=== PATIENT | female | born 2000 | race Caucasian/White ===

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

== ENCOUNTER 2023-02-24 11:31 | Outpatient (REF) | payer MEDICAID, SELFPAY ==
[2023-02-24 13:31] LABS: Hematocrit 36.2 % (37.0-47.0); Hemoglobin 10.9 g/dl (12.0-16.0); Mean Corpuscular HGB Conc 30.1 g/dl (31.0-35.0); Mean Corpuscular Volume 69.9 fL (80.0-98.0); Mean Platelet Volume 9.6 fL (9.4-12.3); Platelet Count 412 X10*3/uL (160-400); Red Blood Count 5.18 X10*6/uL (4.20-5.50); Red Cell Distribution Width 17.3 % (11.0-16.0); White Blood Count 7.1 X10*3/uL (4.8-10.8)
[2023-02-24 13:45] LABS: Alanine Aminotransferase 14 U/L (0-31); Albumin Level 4.4 g/dL (3.5-5.0); Alkaline Phosphatase 111 U/L (39-117); Anion Gap 9 (12-20); Aspartate Amino Transferase 18 U/L (5-31); Bilirubin Total 0.4 mg/dL (0.0-1.0); Blood Urea Nitrogen 5 mg/dL (9-16); Calcium 9.5 mg/dL (8.4-10.2); Carbon Dioxide 30 mmol/L (22-29); Chloride 106 mmol/L (96-108); Cholesterol 121 mg/dL (<200); Estimated Glomerular Filt Rate > 60; Glucose Random 97 mg/dL (60-115); HDL Cholesterol 32 mg/dL (>40); Iron 27 mcg/dL (30-160); LDL Cholesterol Calculated 77 mg/dL (<100); Percent Iron Saturation 8 % (15-50); Potassium 3.9 mmol/L (3.3-5.1); Sodium 141 mmol/L (135-145); Total Iron Binding Capacity 359 mcg/dL (228-428); Total Protein 7.9 g/dL (6.5-8.0); Triglycerides 62 mg/dL (<150); Unsaturated Iron Binding 332 ug/dL
[2023-02-24 13:47] LABS: Estimated Average Glucose 103 mg/dL; Hemoglobin A1c % 5.2 % (<6.0)
[2023-02-24 14:11] LABS: Ferritin 9 ng/mL (10-122); TSH reflex Free T4 1.51 uIU/mL (0.32-4.0); Vitamin D 25-OH Total 15.5 ng/mL (>30)
[2023-02-25 03:41] LABS: Syphilis Screen Nonreactive (Nonreactive)
[2023-02-25 03:59] LABS: HIV AB/AG Nonreactive (Nonreactive); HIV Num 1 0.07 S/CO (0.00-0.99); Hepatitis B Core Antibody Nonreactive (Nonreactive); ~HepC Num1 0.13 S/CO (0.00-0.79); ~Hepatitis B Surface Antibody NONREACTIVE (Nonreactive); ~Hepatitis C Antibody Nonreactive (Nonreactive)
[2023-03-02 11:40] LABS: Anti Nuclear Antibody Screen NEGATIVE (NEGATIVE)
== END 2023-02-24 11:32 | disposition home or self-care (01) ==
LOC: HO.HHCL 11:31
PROVIDERS: Visit Provider Student in an Organized Health Care Education/Training Program
DX: Z00.00 Encounter for general adult medical examination without abnormal findings (principal); Z11.4 Encounter for screening for human immunodeficiency virus [HIV]; L65.9 Nonscarring hair loss, unspecified
CPT/HCPCS: 36415; 80053; 80061; 82306; 82728; 83036; 83540; 84443; 85027; 86038; 86704; 86706; 86780; 86803; 87389

== ENCOUNTER 2023-04-03 17:35 | Outpatient (REF) | payer MEDICAID, SELFPAY ==
[2023-04-04 05:49] LABS: CT PCR NOT DETECTED (Not Detect.); NG PCR NOT DETECTED (Not Detect.)
== END 2023-04-03 17:36 | disposition home or self-care (01) ==
LOC: HO.HHCLNP 17:35
PROVIDERS: Visit Provider Internal Medicine
DX: N93.8 Other specified abnormal uterine and vaginal bleeding (principal)
CPT/HCPCS: 0353U

== ENCOUNTER 2023-07-26 10:08 | Outpatient (REF) | payer MEDICAID, SELFPAY | END 2023-07-26 10:09 | disposition home or self-care (01) | LOC: HO.HHCLNP 10:08 | PROVIDERS: Visit Provider Advanced Practice Midwife | DX: Z01.419 Encounter for gynecological examination (general) (routine) without abnormal findings (principal) | CPT/HCPCS: 88142 ==

== ENCOUNTER 2024-07-25 11:02 | Outpatient (REF) | payer MEDICAID, SELFPAY ==
--- OUTSIDE RECORDS SUMMARY | 2024-07-25 13:17 | XMS_ITS | Encounter Summary ---
Author Organization [employer] Address [address] [place] [address] Care Team Providers Care Cycle Consultant Name Role Phone Laisha Romo MD Primary Care Pro vider Reason for Visit * Reason Comments Gynecologic Exam Encounter Details Date Type Department Care Team (Late st Contact Info) Description 07/25/2024 10:15 AM EDT Office Visit [facility] [address] [place] [address] Nilsa Parks CNM [address] [place] [address] Screening examination for venereal disease (Primary Dx); Hair loss Social History Tobacco Use Types Packs/Day Years Used Date Smoking Tobacco: Never Passive Smoke Exposure: Never Smokeless Tobacco: Never Alcohol Use Standard Drinks/Week Comments Not Currently 0 (1 standard drink = 0.6 oz pur e alcohol) social Depression Answer Date Recorded Patient Health Questionnaire-9 Score 4 02/24/2023 Patient Health Questionnaire-9 Score 4 02/24/2023 Last PHQ-9: Questionnaire Data Not on file 1 04/26/2022 Housing Stability Answer Date Recorded What is your housing situation today? I do not have housing (Staying with others, in a hotel, in a [place], living outside on the street, on a beach, in a car, or in a park 02/15/[address] you li ve. Do you have problems with any of the following? None of the above 02/15/2023 Food Insecurity Answer Date Recorded Within the past 12 months, y ou worried that your food would run out before you got money to buy more: Never True 02/15/2023 Within the past 12 months,th e food you bought just didn't last and you didn't have enough money to get more: Never True 04/2022 Transportation Answer Date Recorded In the past 12 months, has l ack of transportation kept you from medical appts, meetings, work or from getting things needed for daily living? No 02/15/2023 Utilities Answer Date Recorded In the past 12 months, has t he electric, gas, oil or water company threatened to shut off services in your home? No 02/15/2023 Depression Answer Date Recorded Patient Health Questionnaire-2 Score 0 02/24/2023 Comments No Sex and Gender Information Value Date Recorded Sex Assigned at Female 02/24/2023 9:57 AM EST Legal Sex Female 12:20 PM EDT Gender Identity Female 02/24/2023 9:57 AM EST Sexual Orientation Pansexual 02/24/2023 10 :50 AM EST documented as of this encounter Last Filed Vital Signs Vital Sign Reading Time Taken Comments Blood Pressure 138/66 07/25/2024 10:30 AM EDT Pulse 59 07/25/2024 10:30 AM EDT Temperature 36.8 ??C (98.3 ??F) 07/25/2024 10:30 AM E DT Respiratory Rate 16 07/25/2024 10:30 AM EDT Oxygen Saturation 98% 07/25/2024 10:30 AM EDT Inhaled Oxygen Concentration - - Weight 109 kg (241 lb) 07/25/2024 10:30 AM EDT Height 165.1 cm (5' 5 ) 07/25/2024 10:30 AM EDT Body Mass Index 40.1 07/25/2024 10:30 AM EDT documented in this encounter Progress Notes * Nilsa Parks CNM - 07/25/2024 10:15 AM EDT Subjective Patient ID: Michael Martínez is a 24 y.o. female who presents for Gynecologic Exam. Here for annual exam. Last pap smear in 07/26/2023 NILM, not due until 2026. Denies itching, burning, discharge or odor. Has long distance partner, feels safe and is happy. Last intercourse in April, uses condoms, not interested in other forms of BC. Reviewed risks and benefits of as well as lack of evidence for routine pelvic exams and breast exams in average risk patients without symptoms. Together, we decide to defer both today. Michael knows to report any pelvic pain, abnormal discharge or abnormal bleeding or breast symptoms. Main concern is hair loss. She has family history of thyroid disorders. Patient seen in conjunction with Isabell Bernard, [employer] student. I was present for and confirmed all pertinent elements in the history, exam, assessment of the patient, and the plan of care, and agree with all findings. Gynecologic Exam The patient's pertinent negatives include no vaginal discharge. Review of Systems Genitourinary: Negative for menstrual problem, vaginal bleeding, vaginal discharge and vaginal pain. All other systems reviewed and are negative. Objective BP 138/66 (BP Location: Left arm, Patient Position: Sitting, BP Cuff Size: Large adult) Pulse 59 Temp 98.3 ??F (36.8 ??C) (Oral) Resp 16 Ht 5' 5 (1.651 m) Wt 241 lb (109 kg) LMP 07/16/2024 (Exact Date) SpO2 98% BMI 40.10 kg/m?? Physical Exam Constitutional: Appearance: Normal appearance. Neurological: Mental Status: She is alert. Psychiatric: Mood and Affect: Mood normal. Behavior: Behavior normal. Assessment/Plan Diagnoses and all orders for this visit: Screening examination for venereal disease - Chlamydia/N. Gonorrhoeae RNA, TMA, Urine Urine collected for testing, will advise with results. Pap 2026. May return any time if interested in other control options, has any EDUCATION TECHNICIAN concerns, or thinkingabout getting . Hair loss - TSH W/Reflex to FT4; Future Will get labs done today. If negative will refer to derm and advise with results. documented in this encounter Plan of Treatment Scheduled Orders Name Type Priority Associated Diagnoses Orde r Schedule Chlamydia/N. Gonorrhoeae RNA, TMA, Urine Microbiology Routine Screening examination for venereal disease Ordered: 07/25/2024 TSH W/Reflex to FT4 Lab Routine Hair loss Expected: 07/25/2024 (Approximate), Expires: 07/25/2025 documented as of this encounter Visit Diagnoses Diagnosis Screening examination for venereal disease- Primary Hair loss Unspecified alopecia documented in this encounter Additional Health Concerns Assessment Noted Time PHQ-9 Depression Total Score: 4 02/25/20 10:41 AM EST documented as of this encounter Care Teams Cycle Consultant Relationship Specialty Start Date End Date Laisha Romo MD [address] [place] [id number] PCP - General Internal Medicine 02/24/23 documented as of this encounter
--- OUTSIDE RECORDS SUMMARY | 2024-07-25 13:17 | XMS_ITS | Encounter Summary ---
Author Organization [employer] Address [address] [facility] [address] [place] [address] Care Team Providers Care Rehab Department Manager Name Role Phone Laisha Romo MD Primary Care Pro vider Reason for Visit * Reason Comments Med Change Request Encounter Details Date Type Department Care Team (Late st Contact Info) Description 06/23/2023 Refill [facility] [address] [place] [address] Laisha Romo MD [address] [place] [address] Social History Tobacco Use Types Packs/Day Years Used Date Smoking Tobacco: Never Passive Smoke Exposure: Never Smokeless Tobacco: Never Alcohol Use Standard Drinks/Week Comments Yes 0 (1 standard drink = 0.6 oz pur e alcohol) social Depression Answer Date Recorded Patient Health Questionnaire-9 Score 4 02/24/2023 Patient Health Questionnaire-9 Score 4 02/24/2023 Last PHQ-9: Questionnaire Data Not on file 1 04/26/2022 Housing Stability Answer Date Recorded What is your housing situation today? I do not have housing (Staying with others, in a hotel, in a assisted, living outside on the street, on a [...] Patient Health Questionnaire-2 Score 0 02/24/2023 Comments Unknown Sex and Gender Information Value Date Recorded Sex Assigned at Female 02/24/2023 9:57 AM EST Legal Sex Female 12:20 PM EDT Gender Identity Female 02/24/2023 9:57 AM EST Sexual Orientation Pansexual 02/24/2023 10 :50 AM EST documented as of this encounter Plan of Treatment Not on file documented as of this encounter Visit Diagnoses Not on filedocumented in this encounter Additional Health Concerns Assessment Noted Time PHQ-9 Depression Total Score: 4 02/25/20 10:41 AM EST documented as of this encounter Care Teams Rehab Department Manager Relationship Specialty Start Date End Date Laisha Romo MD [address] [place] [id number] PCP - General Internal Medicine 02/24/23 documented as of this encounter
--- OUTSIDE RECORDS SUMMARY | 2024-07-25 13:17 | XMS_ITS | Clinical Summary ---
Author Organization [facility] it Address [address] [place] [address] Care Team Providers Care Fringe Knotter Name Role Phone Unavailable Primary Care Provider Unavailabl e Social History Tobacco Use Types Packs/Day Years Used Date Smoking Tobacco: Never Assessed Comments Unknown Sex and Gender Information Value Date Recorded Sex Assigned at Not on file Legal Sex Female 8:26 AM EST Gender Identity Not on file Sexual Orientation Not on file Plan of Treatment Health Maintenance Due Date Last Done Comments Gonorrhea/Chlamydia Screening 2002 HPV Vaccines (1 - 3-dose series) 2017 Meningococcal B Vaccine (1 o f 2 - Standard) 2018 DTaP,Tdap,and Td Vaccines (1 - Tdap) 2021 Hepatitis B Vaccines (1 of 3 - 19+ 3-dose series) 2021 Depression Screening 03/20/2022 HIV Screening 03/20/2022 Hepatitis C Screening 03/20/2022 Social Influencers of Health Screening 03/20/2022 Cervical Cancer Screening: P ap Smear 06/18/2023 COVID-19 Vaccine (1 - 2023-2 5 season) 2023 Influenza Vaccine (Season Ended) 2024 HIB Vaccines Aged Out No longer eligi ble based on patient's age to complete this topic Hepatitis A Vaccines Aged Out No long er eligible based on patient's age to complete this topic IPV Vaccines Aged Out No longer eligi ble based on patient's age to complete this topic MMR Vaccines Aged Out No longer eligi ble based on patient's age to complete this topic Meningococcal ACWY Vaccine Aged Out N o longer eligible based on patient's age to complete this topic Pneumococcal Vaccine: Pediat rics (0 to 5 Years) and At-Risk Patients (6 to 64 Years) Aged Out No longer eligible b ased on patient's age to complete this topic RSV Immunization Patients Un cecilia 20 months Aged Out No longer eligible b ased on patient's age to complete this topic Varicella Vaccines Aged Out No longer eligible based on patient's age to complete this topic
--- OUTSIDE RECORDS SUMMARY | 2024-07-25 13:17 | XMS_ITS | Encounter Summary ---
Author Organization [email or web address] Address [address] [place] [address] Care Team Providers Care Business Objects Name Role Phone Laisha Romo MD Primary Care Pro vider Encounter Details Date Type Department Care Team (Latest Contact Info) Description 07/25/2024 Travel Social History Tobacco Use Types Packs/Day Years [...] with others, in a hotel, in a alf, living outside on the street, on a [...] documented as of this encounter Care Teams Business Objects Relationship Specialty Start Date End Date Laisha Romo MD [address] [place] [id number] PCP - General Internal Medicine 02/24/23 documented as of this encounter
--- OUTSIDE RECORDS SUMMARY | 2024-07-25 13:17 | XMS_ITS | Clinical Summary ---
Author Organization [employer] Address [address] [place] [address] Care Team Providers Care Piano Accompanist Name Role Phone Laisha Romo MD Primary Care Pro vider Allergies Active Allergy Reactions Criticality Noted Date Comments Shrimp Flavor Agent (Non-Screening) 07/26/2023 Medications * This document contains information received from the source organization and may not represent a complete record from that organization. ferrous gluconate (Fergon) 324 (38 Fe) MG tablet TAKE 1 TABLET BY MOUTH WITH BREAKFAST 90 tablet 4 Active albuterol 108 (90 Base) MCG/ACT inhaler Inhale 2 puffs every 6 (six) hours if needed for wheezing. 18 g 3 4 Active Mometasone Furoate (Asmanex HFA) 200 MCG/ACT aerosol INHALE 1 PUFF BY MOUTH TWICE A DAY 13 g 2 4 Active ulipristal (Jeannette) 30 mg tablet Take one tablet by mouth up to five days after sex. Do not use more than once per menstrual cycle. If repeat dose is needed in same cycle, please contact prescriber. 1 tablet 11 4 Active ergocalciferol (Vitamin D2) 1.25 MG (91709 UT) capsule TAKE 1 CAPSULE BY MOUTH ONE TIME PER WEEK 13 capsule 4 Active Active Problems Problem Noted Date Diagnosed Date Anemia 06/23/2023 Vitamin D deficiency 06/23/2023 Hair loss 02/26/2023 Keratosis pilaris 02/26/2023 Depression with anxiety 02/26/2023 Health care maintenance 02/26/2023 Asthma 02/24/2023 Obesity 02/24/2023 Encounters Date Type Department Care Team Description 07/25/2024 10:15 AM EDT Office Visit [facility] [address] [place] [address] Otilia Manriquez CNM Screening examination for venereal disease (Primary Dx); Hair loss 07/25/2024 Travel 06/28/2024 Population Health Risk Score Community [facility] ([facility] Department [address] [phone] Provider, Population Health Generic 05/22/2024 Travel from Last 3 Months Immunizations Name Administration Dates Next Due Influenza injectable quadrivalent preservative f ree 02/24/2023 Pfizer Covid-19 Vaccine 12+ 06/23/2023 Pneumococcal Conjugate PCV 20 06/23/2023 Family History Medical History Relation Name Comments DM2 Maternal Grandfather Thyroid cancer Sister 1/2 sister, s rocio father Relation Name Status Comments Maternal Grandfather Sister Social History Tobacco Use Types Packs/Day Years Used Date Smoking Tobacco: Never Passive Smoke Exposure: Never Smokeless Tobacco: Never Tobacco Cessation:Counseling Given: Not Answered Alcohol Use Standard Drinks/Week Comments Not Currently [...] with others, in a hotel, in a usp, living outside on the street, on a [...] Orientation Pansexual 02/24/2023 10 :50 AM EST Last Filed Vital Signs Vital Sign Reading [...] Mass Index 40.1 07/25/2024 10:30 AM EDT Plan of Treatment Health Maintenance Due Date Last Done Comments Alcohol/Substance Use Screening 2014 HPV Vaccines (1 - 3-dose series) 2017 DTaP/Tdap/Td Vaccines (1 - Tdap) 2021 Hepatitis B Vaccines (1 of 3 - 19+ 3-dose series) 2021 COVID-19 Vaccine ( - 2023-2 5 season) 2023 06/23/2023, 09/26/2020, 09/05/2020 Influenza Vaccine (#1) 2023 , 05/21/2020 SDOH Screening 02/16/2024 02/15/2023 Depression Screening 02/25/2024 02/24/2023, 02/24/2023 Chlamydia and Gonorrhea Screening 04/03/2024 04/03/2023 Family Planning (PISQ) 07/25/2025 07/25/2024 Tobacco Screening 07/25/2025 07/25/2024 Pap Smear 07/25/2026 07/26/2023 Lipid Panel 02/25/2028 02/24/2023 Zoster Vaccines (1 of 2) 2052 RSV Patients and Patients Aged 60 years or older (1 - 1-dose 75+ series) 2077 HIV Screening Completed 02/24/2023 Hepatitis C Screening Completed 02/24/2023 Pneumococcal Vaccine: Pediatrics (0 to 5 Years) and At-Risk Patients (6 to 49) Years) Completed 06/23/2023 HIB Vaccines Aged Out No longer eligi ble based on patient's age to complete this topic Hepatitis A Vaccines Aged Out No long er eligible based on patient's age to complete this topic IPV Vaccines Aged Out No longer eligi ble based on patient's age to complete this topic Meningococcal Vaccine Aged Out No marcela annmarie eligible based on patient's age to complete this topic RSV under 20 months Aged Out No longe r eligible based on patient's age to complete this topic Rotavirus Vaccines Aged Out No longer eligible based on patient's age to complete this topic Procedures Procedure Name Priority Date/Time Associated Diagnosis Comments PAP SMEAR Routine 07/26/2023 10:08 AM EDT Cervical cancer screening CHLAMYDIA/N. GONORRHOEAE RNA, TMA, UROGENITAL Routine 04/03/2023 4:07 PM EST DUB (dysfunctional uterine bleeding) HEPATITIS C AB W/REFL TO HCV RNA, QN, PCR Routine 02/24/2023 11:33 AM EST Annual physical exam HIV 1/2 ANTIGEN/ANTIBODY, FOURTH GENERATION W/RFL Routine 02/24/2023 11:33 AM EST Annual physical exam LIPID PANEL, STANDARD Routine 02/24/2023 11:33 AM EST Annual physical exam from Last 3 Months or Most Recently Relevant to Health Maintenance Results * Pap Smear (07/26/2023 10:08 AM EDT) Swab Cervix uteri structure / Unknown 07/26/2023 10:08 AM EDT 08/01/2023 12:00 PM EDT [facility] - 08/14/2023 12:51 PM EDT ----- ------- Name: Michael Martínez ? Age/Sex: 23/F ? : 2000 Unit#: [id number] ?? Attend Dr: OTILIA MANRIQUEZ CNM ?Re07/26/23 ?Status: DEP REF ? Location: HO.HHCLNP ? Disch: ? ----- ------- SPEC : [id number] ? RECD: 08/01/23-1200 ? STATUS: ??SOUT ? REQ NUM: [id number] ? PARISA: 07/26/23-1008 ? SUBM DR: OTILIA MANRIQUEZ CNM ? ENTERED: ??08/01/23-1251 ?SP TYPE: Pap Smr ?OTHR : ? ORDERED: ??Pap Smear ? Interpretation ?? Satisfactory for evaluation. ?? No endocervical cells seen. ?? Coccobacilli consistent with shift in vaginal jacqueline. ?? Negative for intraepithelial lesion or malignancy. ?Clinical Information LMP: 07/12/23 Previous PAP test: Initial pap ? Material Received ?? ThinPrep-Cervical ----- ------- Signed (signature on file) ROSIE Romero (ASCP) 08/14/23 1251 ? ----- ------- ? END OF REPORT ? us Otilia Manriquez [facility] CYTOLOGY ORDERABLES F inal Result [facility] [address], [place] [phone] * Chlamydia/N. Gonorrhoeae RNA, TMA, Urogenitial (04/03/2023 4:07 PM EST) CT PCR NOT DETECTED Not Detect. [facility] Comment:A not detected test result does not exclude the possibilityof infection because test results can be affected byimproper specimen collection, concurrent antibiotic therapy,or the number of organisms in the specimen which may bebelow the sensitivity of the test. As with many diagnostictests, results from the Xpert CT/NG assay should beinterpreted in conjunction with other laboratory andclinical data available to the clinician.Xpert CT/NG performance has not been evaluated in patientsless than 14 years of age. The assay should not be used forthe evaluationof suspected sexual abuse or for other medico-legalindications. Additional testing is recommended in anycircumstance when false positive or false negative resultscould lead to adverse medical, social or psychologicalconsequences. NG PCR NOT DETECTED Not Detect. [facility] Comment:A not detected test result does not exclude the possibilityof infection because test results can be affected byimproper specimen collection, concurrent antibiotic therapy,or the number of organisms in the specimen which may bebelow the sensitivity of the test. As with many diagnostictests, results from the Xpert CT/NG assay should beinterpreted in conjunction with other laboratory andclinical data available to the clinician.Xpert CT/NG performance has not been evaluated in patientsless than 14 years of age. The assay should not be used forthe evaluationof suspected sexual abuse or for other medico-legalindications. Additional testing is recommended in anycircumstance when false positive or false negative resultscould lead to adverse medical, social or psychologicalconsequences. Urine (Urine, Random) 04/03/2023 4:07 PM EST 04/03/2023 5:36 PM EST Narrative [facility] - 04/04/2023 5:49 AM EST Urine us Fozia Elmore MD LAB MICROBIOLOGY - GENER AL ORDERABLES Final Result Performing Organization Address [facility]/ZIP Co de Phone Number [facility] [address] [place] [phone] * Hepatitis C Antibody with Reflex to HCV, RNA, Quantitative, Real-Time PCR (02/24/2023 11:33 AM EST) Hepatitis C Antibody Nonreactive Nonreactive [facility] Comment:Antibodies to HCV no t detected; does not exclude early acuteHCV infection. Blood Venous blood specimen / Unknown 02/24/2023 11:33 AM EST 02/24/2023 1:12 PM EST us Laisha Modi MD LAB BLOOD ORDERAB LES Final Result Performing Organization Address [facility] Co de Phone Number [facility] [address] [place] [phone] * HIV-1/2 Antigen and Antibodies, Fourth Generation, with Reflexes (02/24/2023 11:33 AM EST) Pathologist [facility] HIV AB/AG Nonreactive Nonreactive [facility] Comment:HIV-1 p24 Ag and/or HIV-1/HIV-2 Ab not detected.A test result that is nonreactive does not exclude thepossibility of exposure to or infection with HIV-1 and/orHIV-2. Nonreactive results in this assay for individualswith prior exposure to HIV-1 and/or HIV-2 may be due toantigen and antibody levels that are below the limit ofdetection of this assay.The [employer] HIV Ag/Ab Combo assay result andsupplemental assay results should be interpreted inconjunction with the patient's clinical presentation,history and other laboratory results. If the results areinconsistent with clinical evidence, additional testing issuggested to confirm the result. Blood Venous blood specimen / Unknown 02/24/2023 11:33 AM EST 02/24/2023 1:12 PM EST us Laisha Modi MD LAB BLOOD ORDERAB LES Final Result Performing Organization Address [facility] Co de Phone Number [facility] [address] [place] [address] [phone] * (ABNORMAL) Lipid Panel, Standard (02/24/2023 11:33 AM EST) Triglycerides 62 <150 mg/dL [facility] Comment:Desirable Triglyceri de: less than 150 mg/dLBorderline High Triglyceride 150-199 mg/dLHigh Triglyceride: 200-499 mg/dLVery High Triglyceride: greater than or equal to 5OO mg/dL Cholesterol 121 <200 mg/dL [facility] Comment:Desirable Cholestero l: less than 200 mg/dLBorderline High Cholesterol: 200-239 mg/dLHigh Cholesterol: greater than 239 mg/dL LDL Cholesterol Calculated 77 <100 mg/dL [facility] Comment:Desirable LDL: less than 100 mg/dLNear Optimal/Above Optimal LDL: 110- 129 mg/dLBorderline High LDL: 130-159 mg/dLHigh LDL: 160-189 mg/dLVery High LDL: greater than or equal to 190 mg/dL HDL Cholesterol 32(L) >40 mg/dL [facility] Comment:Desirable HDL: great er than 40 mg/dL Note: This HDL assay may give artificially low results in patients with liver disease. Blood Venous blood specimen / Unknown 02/24/2023 11:33 AM EST 02/24/2023 1:12 PM EST us Laisha Modi MD LAB BLOOD ORDERAB LES Final Result Performing Organization Address [facility]/ZIP Co de Phone Number [facility] [address] [place] [phone] from Last 3 Months or Most Recently Relevant to Health Maintenance Insurance [employer] C[employer] Care Teams Piano Accompanist Relationship Specialty Start Date End Date Laisha Romo MD [address] [place] [phone] PCP - General Internal Medicine 02/24/23
[2024-07-25 16:45] LABS: CT PCR NOT DETECTED (Not Detect.); NG PCR NOT DETECTED (Not Detect.)
== END 2024-07-25 11:03 | disposition home or self-care (01) ==
LOC: HO.CHCLDS 11:02
PROVIDERS: Visit Provider Advanced Practice Midwife
DX: L65.9 Nonscarring hair loss, unspecified (principal); Z11.3 Encounter for screening for infections with a predominantly sexual mode of transmission
CPT/HCPCS: 36415; 84443; 87491; 87591

== ENCOUNTER 2025-03-04 09:16 | Outpatient (REF) | payer MEDICAID, SELFPAY | END 2025-03-04 09:17 | disposition home or self-care (01) | LOC: HO.HHCL 09:16 | PROVIDERS: PCP Student in an Organized Health Care Education/Training Program; Visit Provider Internal Medicine | DX: L73.2 Hidradenitis suppurativa (principal); L64.9 Androgenic alopecia, unspecified; L85.8 Other specified epidermal thickening | CPT/HCPCS: 36415; 83036; 83525; 84403 ==